=== PATIENT | female | born 1975 | race American Indian/Alaskan Native ===

== ENCOUNTER 2018-11-12 13:46 | Emergency (ER) | payer OTHER ==
--- NOTE | 2018-11-12 13:59 | Emergency Department Report ---
Chief Complaint: Headache Stated Complaint: HYPERTENSION/HEADACHE Time Seen by Provider: 11/12/18 13:52 - HPI History of Present Illness: Pt presents with a frontal PALOMINO for a week pt states she has tension in the neck pt states she "has not slept in a week" she has a pt also c/o chills no congestion, no rhinorrhea, no sinus congestion pt states she had HTN in pt has been taking ibuprofen for a PALOMINO states it goes away then comes back no sick contacts no vision changes pt states she had a "mini stroke" [facility] [place] MSE screening note: Focused history and physical exam performed. ED Disposition for MSE Condition: Stable
--- NOTE | 2018-11-12 15:49 | Emergency Department Report ---
ED Headache HPI - General Chief Complaint: Headache Stated Complaint: HYPERTENSION/HEADACHE Time Seen by Provider: 11/12/18 13:52 Source: patient - History of Present Illness Initial Comments: 43-year-old -[place] female with past history of hypertension presents emergency department complaining of a near two-week history of headache episodes involvement of the frontal parietal and occipital region of her head. Headache is dull and throbbing and associated with photophobia and occasional dizziness. States that she's been done in the care of a primary care provider and neurology for headache while living in [place], but just relocated to [place] this September 2018. She was scheduled for an MRI, which she failed to show up with the appointment to have a complete she presents today worried about what they were looking for having continued pain. She denies any loss of consciousness. No neck pain or fever. No rashes or joint pain. No trauma. No vomiting or diarrhea. No recent foreign travel. States that [id number] Tylenol and Motrin helped to resolve the headache, but it always comes back Recent Head Trauma: frequent headaches Associated Symptoms: vision changes. denies: fever/chills, flushing, loss of consciousness, nasal drainage, numbness in legs/feet, sinus infection, stiff neck, weakness Allergies/Adverse Reactions: Allergies No Known Allergies Allergy (Unverified 11/12/18 13:48) Home Medications: Ambulatory Orders Butalb/Acetaminophen/Caffeine [Fioricet 50-300-40 mg CAP] 1 cap PO Q8HR PRN #15 cap 11/12/18 ED Review of Systems ROS: Stated complaint: HYPERTENSION/HEADACHE Other details as noted in HPI Comment: All other systems reviewed and negative Constitutional: denies: chills, fever Eyes: denies: eye pain, eye discharge, vision change ENT: denies: ear pain, throat pain Respiratory: denies: cough, shortness of breath, wheezing Cardiovascular: denies: chest pain, palpitations Endocrine: no symptoms reported Gastrointestinal: denies: abdominal pain, nausea, diarrhea Genitourinary: denies: urgency, dysuria, discharge Musculoskeletal: denies: back pain, joint swelling, arthralgia Skin: denies: rash, lesions Neurological: headache. denies: weakness, paresthesias Psychiatric: denies: anxiety, depression Hematological/Lymphatic: denies: easy bleeding, easy bruising ED Past Medical Hx - Past Medical History Hx Hypertension: Yes (PIH) - Surgical History Past Surgical History?: No - Social History Smoking Status: Never Smoker Substance Use Type: None - Medications Home Medications: Home Medications Medication Instructions Recorded Confirmed Last Taken Type Butalb/Acetaminophen/Caffeine 1 cap PO Q8HR PRN #15 cap 11/12/18 Unknown Rx [Fioricet 50-300-40 mg CAP] ED Physical Exam - General Limitations: No Limitations General appearance: alert, in no apparent distress - Head Head exam: Present: atraumatic, normocephalic - Eye Eye exam: Present: normal appearance, other (negative funduscopic examination. No nystagmus). Absent: nystagmus - ENT ENT exam: Present: mucous membranes moist - Neck Neck exam: Present: normal inspection, full ROM. Absent: tenderness, meningismus, lymphadenopathy, thyromegaly - Respiratory Respiratory exam: Present: normal lung sounds bilaterally. Absent: respiratory distress, wheezes, rales, rhonchi - Cardiovascular Cardiovascular Exam: Present: regular rate, normal rhythm. Absent: systolic murmur, diastolic murmur, rubs, gallop - GI/Abdominal GI/Abdominal exam: Present: soft, normal bowel sounds - Extremities Exam Extremities exam: Present: normal inspection - Back Exam Back exam: Present: normal inspection. Absent: CVA tenderness (R) - Neurological Exam Neurological exam: Present: alert, oriented X3, CN II-XII intact, normal gait - Psychiatric Psychiatric exam: Present: normal affect, normal mood - Skin Skin exam: Present: warm, dry, intact, normal color. Absent: rash ED Course Vital Signs 11/12/18 11/12/18 13:52 17:52 Temperature 98.6 F Pulse Rate 86 73 Respiratory 20 16 Rate Blood Pressure 120/85 Blood Pressure 111/74 [Left] O2 Sat by Pulse 97 Oximetry Critical care attestation.: If time is entered above; I have spent that time in minutes in the direct care of this critically ill patient, excluding procedure time. ED Disposition Clinical Impression: Cephalgia Disposition: DC-01 TO HOME OR SELFCARE Is pt being admited?: No Does the pt Need Aspirin: No Condition: Stable Instructions: Acute Headache (ED) Prescriptions: Butalb/Acetaminophen/Caffeine [Fioricet 50-300-40 mg CAP] 1 cap PO Q8HR PRN #15 cap PRN Reason: Headache
--- NOTE | 2018-11-12 16:28 | Cat Scan Report ---
PROCEDURE: CT HEAD/BRAIN WO CON TECHNIQUE: Computerized tomography of the head was performed without contrast material. Imaging was obtained in axial increments. CT DOSE LENGTH PRODUCT: 805.42 mGycm HISTORY: headache, dizziness, blurred vision off an on COMPARISONS: None . FINDINGS: The ventricular system is normal in size and configuration. There is no evidence for parenchymal volu me loss. There is no evidence for mass lesion, mass effect, midline shift, acute intracranial hemorrhage, or a cute ischemia/ infarction. No evidence for acute skull fracture is seen. No abnormality in the overlying scalp soft tissues is s een. Visualized paranasal sinuses are clear. IMPRESSION: No acute intracranial process noted. This document is electronically signed by Sun Loza MD., November 12 2018 04:26:07 PM ET
[2018-11-12 17:53] VITALS: BP 111/74
[2018-11-12] MEDS ORDERED: TORADOL IM ONE (17:58)
[2018-11-12] MEDS ORDERED: TORADOL ONE (18:02)
== END 2018-11-12 19:18 | disposition home or self-care (01) ==
LOC: ED 13:46
DX: R51 Headache (principal); H53.419 Scotoma involving central area, unspecified eye; R42 Dizziness and giddiness; I10 Essential (primary) hypertension
CPT/HCPCS: 70450; 96372; 99283; J1885

== ENCOUNTER 2019-08-21 21:28 | Emergency (ER) | payer MEDICAID, OTHER | END 2019-08-21 23:25 | disposition home or self-care (01) | LOC: ED 21:28 | CPT/HCPCS: 99283 ==